=== PATIENT | male | born 1990 | race Caucasian/White ===

== ENCOUNTER 2018-08-03 08:18 | Outpatient (CLI) | payer OTHER ==
[2018-08-03 09:09] LABS: CHOL/HDL RATIO 4.5 (<5.0); CHOLESTEROL 168 mg/dL; HDL CHOLESTEROL 37 mg/dL
[2018-08-03 09:25] LABS: HB2 TOTAL 17.6 g/dL; HEMOGLOBIN A1C 0.58 g/dL; HEMOGLOBIN A1C % 5.2 % (4.6-6.2)
[2018-08-03 09:27] LABS: LDL CHOLESTEROL,DIRECT 83 mg/dL; LDLD/HDL RATIO 2.2 (<3.6)
== END 2018-08-03 08:19 | disposition home or self-care (01) ==
LOC: LAB 08:18
PROVIDERS: ATTEND Nurse Practitioner Family
DX: E78.5 Hyperlipidemia, unspecified (principal); Z13.1 Encounter for screening for diabetes mellitus
CPT/HCPCS: 36415; 80061; 83036; 83721

== ENCOUNTER 2018-08-10 08:14 | Outpatient (CLI) | payer OTHER ==
[2018-08-10 08:40] LABS: ALBUMIN 4.7 g/dL (3.2-5.5); ALBUMIN/GLOBULIN RATIO 1.5 (1.0-2.2); BILIRUBIN,TOTAL 0.6 mg/dL (0.2-1.0); CALCIUM 9.5 mg/dL (8.5-10.3); CREATININE 0.8 mg/dL (0.6-1.2); TOTAL PROTEIN 7.8 g/dL (6.7-8.2)
== END 2018-08-10 08:15 | disposition home or self-care (01) ==
LOC: LAB 08:14
PROVIDERS: ATTEND Nurse Practitioner Family
DX: E78.5 Hyperlipidemia, unspecified (principal)
CPT/HCPCS: 36415; 80053; 84443

== ENCOUNTER 2018-08-30 13:20 | Outpatient (CLI) | payer OTHER | END 2018-08-30 13:21 | disposition home or self-care (01) | LOC: SC 13:20 | PROVIDERS: ATTEND Internal Medicine Pulmonary Disease | DX: G47.10 Hypersomnia, unspecified (principal); R06.81 Apnea, not elsewhere classified; R41.89 Other symptoms and signs involving cognitive functions and awareness; R06.83 Snoring; G47.8 Other sleep disorders | CPT/HCPCS: 99203; 99212 ==

== ENCOUNTER 2018-09-21 19:26 | Outpatient (CLI) | payer OTHER | END 2018-09-21 19:27 | disposition home or self-care (01) | LOC: SC 19:26 | PROVIDERS: ATTEND Internal Medicine Pulmonary Disease | DX: G47.33 Obstructive sleep apnea (adult) (pediatric) (principal) | CPT/HCPCS: 95810 ==

== ENCOUNTER 2018-11-03 08:16 | Outpatient (CLI) | payer OTHER | END 2018-11-03 08:17 | disposition home or self-care (01) | LOC: SC 08:16 | PROVIDERS: ATTEND Nurse Practitioner Family | DX: G47.33 Obstructive sleep apnea (adult) (pediatric) (principal) | CPT/HCPCS: 99212; 99214 ==

== ENCOUNTER 2019-01-04 | Outpatient (CLI) | payer OTHER | END 2019-01-04 15:44 | disposition home or self-care (01) | DX: G47.33 Obstructive sleep apnea (adult) (pediatric) (principal) | CPT/HCPCS: 99212; 99214 ==

== ENCOUNTER 2019-02-15 07:57 | Outpatient (CLI) | payer OTHER ==
[2019-02-15 08:28] LABS: ALBUMIN 4.3 g/dL (3.2-5.5); ALBUMIN/GLOBULIN RATIO 1.4 (1.0-2.2); ALKALINE PHOSPHATASE 66 IU/L (42-121); ALT ALANINE AMINOTRANSFERASE 29 IU/L (10-60); AST ASPARTATE AMINOTRANSFERASE 22 IU/L (10-42); BILIRUBIN,TOTAL 0.4 mg/dL (0.2-1.0); BUN - BLOOD UREA NITROGEN 15 mg/dL (6-20); CALCIUM 9.2 mg/dL (8.5-10.3); CARBON DIOXIDE - CO2 24 mmol/L (21-32); CHLORIDE 104 mmol/L (101-111); CHOL/HDL RATIO 4.1 (<5.0); CHOLESTEROL 150 mg/dL; CREATININE 0.8 mg/dL (0.6-1.2); GFR - MDRD 116 (>89); GLUCOSE 120 mg/dL (70-100); HDL CHOLESTEROL 37 mg/dL; LDL CHOLESTEROL,CALCULATED 52 mg/dL; LDL/HDL RATIO 1.4 (<3.6); SODIUM 137 mmol/L (135-145); TOTAL PROTEIN 7.4 g/dL (6.7-8.2); VLDL CHOLESTEROL 61 mg/dL
== END 2019-02-15 07:58 | disposition home or self-care (01) ==
LOC: LAB 07:57
PROVIDERS: ATTEND Nurse Practitioner
DX: G47.33 Obstructive sleep apnea (adult) (pediatric) (principal); I10 Essential (primary) hypertension; E78.5 Hyperlipidemia, unspecified
CPT/HCPCS: 36415; 80053; 80061; 83721

== ENCOUNTER 2019-04-03 08:18 | Outpatient (CLI) | payer OTHER ==
--- NOTE | 2019-04-03 09:04 | SLEEP CARE CONSULTATION ---
Information from patient questionnaire entered by Zoila Dixon. I have reviewed and concur with the information entered by Zoila Dixon. This document represents the service I personally performed and the decisions made by me, Genie Coon, RN, MSN, [facility]. History of Present Illness Previous diagnosis: Moderate, Obstructive Sleep Apnea-Hypopnea Syndrome AHI: 16.9 Reason for CPAP/BiPAP follow up: three month (PRESSURE CHANGE) Equipment type: CPAP Equipment obtained from: [facility] Prior sleep studies: Yes Year and Where: 2019 [facility] additional information: Since last seen, his lisinopril has been discontinued as better blood control with CPAP. His sleep schedule may be interrupted due to new baby in household. CPAP Compliance Data - Data Reviewed with Patient Average duration of nightly device use: 7h 19m Compliance rate %: 98.9 Current pressure setting (cmH2O): 8-12 Humidity settin Heated hose settin Average residual AHI: 1.6 Average large leak: 0 Subjective Missed days of use due to: reports: other (hospital of of baby) Patient concerns: reports: nasal congestion (once only and adjusted humidity ). denies: aerophagia, mask discomfort, air blowing in eyes, mask leak noise, condensation in mask/hose, dry mouth, nose, throat, epistaxis Observed to snore while using device: No Current pressure setting perceived as: comfortable On therapy, patient: reports: sleeping better, awakening more refreshed, being more awake and alert during the day, more rested overall. denies: drowsiness while driving Initial [place] Sleepiness Scale score: 11 Current [place] Sleepiness Scale score: 5 Allergies and Home Medications Known drug allergies: Yes Home medication list reviewed: Yes Allergy and home medication list: Medication Name (generic/name brand) Strength & Dosage Atorvastatin 40 mg daily Review of Systems Review of systems same as previous: Yes Physical Exam Blood Pressure: 130/70 Cuff size: long Height: 6 ft 4.75 in Weight: 310 lb 3.2 oz Body Mass Index: 37.0 BMI Classification: Obesity Class 2 Impression and Plan 1. Obstructive Sleep Apnea-Hypopnea Syndrome, moderate, with good treatment compliance and good apnea control. On CPAP therapy, the patient has better sleep quality and is more rested overall. Now that patient is feeling better, he would like to start losing weight. He has a family of diabetes history and is aware he needs to lose weight to decrease risks. Currently his BMI is 37 , class 2 obesity. His goal is to get to 230 weight where he felt good in highschool. I stressed importance of getting rid of gut weight to reduce health risks. He is going to start by reducing portions and healthy content. I discussed how weight loss will reduce his apnea risk and pressure requirements. Symptoms to report for pressure change discussed. Questions in regard to replacement of supplies and rationale discussed. Copy of reference sheet given. Patient's apnea severity and rationale for treatment to reduce apnea, improve sleep quality and reduce cardiovascular and cerebrovascular events was reviewed. I also reviewed the benefit of consistent device use of CPAP for hypertension. His blood pressure medication has been discontinued since last seen. Since his apnea is more severe supine , then is unable to use CPAP he is to avoid supine with pillow positioning. * Continue CPAP pressure at 8-12 cmH2O * Notify me if snoring with mask or feeling that the pressure is too much or too little * Attempt to lose weight * Return for follow up in 6 months , or sooner if concerns arise I spent 100% of this 30 minute visit face to face with the patient with greater than 50% of this was spent time counseling the patient and coordination of care.
[2019-04-03 09:05] VITALS: BP 130/70
== END 2019-04-03 08:19 | disposition home or self-care (01) ==
LOC: SC 08:18
PROVIDERS: ATTEND Nurse Practitioner Family
DX: G47.33 Obstructive sleep apnea (adult) (pediatric) (principal); E66.9 Obesity, unspecified; Z68.37 Body mass index [BMI] 37.0-37.9, adult
CPT/HCPCS: 99212; 99214

== ENCOUNTER 2020-06-06 07:44 | Outpatient (CLI) | payer OTHER ==
--- NOTE | 2020-06-06 08:20 | SLEEP CARE CONSULTATION ---
Information from patient questionnaire entered by Ani Calzada. I have reviewed and concur with the information entered by Ani Calzada. This document represents the service I personally performed and the decisions made by , Pam Hendricks ARNP. History of Present Illness Service Date and Time: 06/06/2020 0744 Previous diagnosis: Moderate, Obstructive Sleep Apnea-Hypopnea Syndrome AHI: 16.9 (in 2019) Reason for follow up: annual (last seen 03/2019) Equipment type: CPAP Equipment obtained from: [employer] (getting supplies as needed, sometimes gets some online) Mask style: Nasal pillows Backup mask available: Yes (old mask) Last cushion change: 1 month Prior sleep studies: Yes Year and Where: 2019 - [facility] [place] Type of Sleep Study: Polysomnography HPI additional information: MICHAEL JUÁREZ was diagnosed to have moderate, AHI 16.9, obstructive sleep apnea- hypopnea syndrome and returned today for CPAP therapy annual follow-up. CPAP Compliance Data - Data Reviewed with Patient Average duration of nightly device use: 6 hr 48 min Compliance rate %: 93.3 (180 days) Current pressure setting (cmH2O): 8-12 Humidity settin Heated hose settin Average residual AHI: 1.6 Average large leak: 1 sec Subjective Missed days of use due to: reports: other (forgot) Patient concerns: reports: dry mouth, nose, throat (not every night, less than half; uses chinstrap to keep jaw shut), other (uses chin strap, drools a lot at night). denies: aerophagia, mask discomfort, air blowing in eyes, mask leak noise, condensation in mask/hose, nasal congestion, epistaxis Observed to snore while using device: No Current pressure setting perceived as: comfortable On therapy, patient: reports: sleeping better, awakening more refreshed, being more awake and alert during the day, more rested overall. denies: drowsiness while driving Initial [place] Sleepiness Scale score: 11 (in 2019) Current [place] Sleepiness Scale score: 3 Allergies and Home Medications Drug allergies reviewed: Yes (NKDA) Home medication list reviewed: Yes (no changes) Review of Systems Review of systems same as previous: Yes (no changes) Physical Exam Heart Rate: 85 O2 Saturation: 100 Height: 6 ft 4.75 in Weight: 309 lb Body Mass Index: 36.8 BMI Classification: Obese Impression and Plan 1. Obstructive Sleep Apnea-Hypopnea Syndrome, moderate, with good treatment compliance and good apnea control. On CPAP therapy, the patient has better sleep quality and is more rested overall. He often has a dry mouth but states he has an issue with lots of drooling at night and he wears a chin strap to keep his mouth closed. Oral dryness can be reduced by adjusting humidity setting higher or heated hose lower or by adjusting both settings. I reviewed instructions on how to change humidity and heated hose settings with rationale explaining why to change. Patient advised that chronic oral dryness can affect dental health and advised to follow up with dentist if it becomes chronic throughout the day. 2. Obesity, unspecified. Currently patients BMI is 36.8. Obesity increases the risk of apnea, CPAP pressure requirements and overall health risks especially cardiovascular and diabetes. Thus patient is advised to lose weight. Weight loss can be done with reducing portion size, reducing refined foods and balancing content with vegetables, fruit and whole grain foods. Patient's apnea severity and rationale for treatment to reduce apnea, improve sleep quality and reduce cardiovascular and cerebrovascular events was reviewed. I also reviewed the benefit of consistent device use of CPAP for hypertension. * Continue auto CPAP pressure at 8-12 cmH2O * Notify me if snoring with mask or feeling that the pressure is too much or too little * Attempt to lose weight * Call this office if any problems using CPAP * Return for follow up in 1 year , or sooner if concerns arise Counseling Topics: Spare mask, Weight loss health impact Visit Type: In Office Time Spent with Patient (minutes): 17 Provider Statement: I spent 100% of the Face to Face Visit with the patient with greater than 50% spent counseling the patient and coordination of care.
== END 2020-06-06 07:45 | disposition home or self-care (01) ==
LOC: SC 07:44
PROVIDERS: ATTEND Nurse Practitioner Family
DX: G47.33 Obstructive sleep apnea (adult) (pediatric) (principal); E66.9 Obesity, unspecified; Z68.36 Body mass index [BMI] 36.0-36.9, adult
CPT/HCPCS: 99212; 99213

== ENCOUNTER 2022-03-17 21:18 | Emergency (ER) | payer BC, OTHER ==
[2022-03-17 22:00] LABS: BASOPHILS % (AUTO) 0.3 %; EOSINOPHILS % (AUTO) 0.1 %; HCT - HEMATOCRIT 41.6 % (42.0-52.0); HGB - HEMOGLOBIN 14.3 g/dL (14.0-18.0); LYMPHOCYTES # (AUTO) 2.4 10^3/uL (1.5-3.5); LYMPHOCYTES % (AUTO) 17.4 %; MEAN CORPUSCULAR HEMOGLOBIN 28.4 pg (27.0-31.0); MEAN CORPUSCULAR HGB CONC 34.4 g/dL (32.0-36.0); MEAN CORPUSCULAR VOLUME 82.5 fL (80.0-94.0); MEAN PLATELET VOLUME 9.3 fL (7.4-11.4); MONOCYTES # (AUTO) 0.8 10^3/uL (0.0-1.0); MONOCYTES % (AUTO) 6.1 %; NEUTROPHILS # (AUTO) 10.4 10^3/uL (1.5-6.6); NEUTROPHILS % (AUTO) 75.7 %; PLT - PLATELET COUNT 275 10^3/uL (130-450); RED BLOOD COUNT 5.04 10^6/uL (4.70-6.10); RED CELL DISTRIBUTION WIDTH 12.3 % (12.0-15.0); WHITE BLOOD COUNT 13.8 x10^3/uL (4.8-10.8)
[2022-03-17 22:05] LABS: GLUCOSE, URINE (UA) NEGATIVE (NEGATIVE); KETONES,URINE (UA) 15 mg/dL (NEGATIVE); LEUKOCYTE ESTERASE, URINE NEGATIVE (NEGATIVE); NITRITE,URINE POSITIVE (NEGATIVE); OCCULT BLOOD,URINE LARGE (NEGATIVE); PROTEIN,URINE >=300 mg/dL (NEGATIVE); UROBILINOGEN,URINE 1 (NORMAL) E.U./dL (NORMAL)
[2022-03-17 22:10] LABS: BILIRUBIN,URINE SMALL (NEGATIVE); ICTOTEST,URINE POSITIVE
[2022-03-17 22:11] LABS: BACTERIA,URINE Few /HPF (None Seen); CLARITY,URINE CLOUDY (CLEAR); RBC,URINE TNTC /HPF (0-5); SQUAMOUS EPITHELIAL CELL,UR FEW Squamous (<= Few); WBC,URINE 0-3 /HPF (0-3)
[2022-03-17 22:12] LABS: ALBUMIN 4.9 g/dL (3.2-5.5); ALBUMIN/GLOBULIN RATIO 1.6 (1.0-2.2); BILIRUBIN,TOTAL 0.6 mg/dL (0.2-1.0); CALCIUM 9.5 mg/dL (8.5-10.3); POTASSIUM 3.5 mmol/L (3.5-5.0)
[2022-03-17] MEDS ORDERED: SODIUM CHLORIDE 0.9% 1,000 ML IV STA (22:20)
--- NOTE | 2022-03-17 23:33 | CT Report ---
PROCEDURE: Abdomen/Pelvis W INDICATIONS: painless hematuria CONTRAST: IV CONTRAST: Optiray 320 ml: 100 PO CONTRAST: *NO PO CONTRAST TECHNIQUE: After the administration of intravenous contrast, 5 mm thick sections acquired from the diaphragms to the symphysis. 5 mm thick coronal and sagittal reformats were acquired. For radiation dose reducti on, the following was used: automated exposure control, adjustment of mA and/or kV according to lucila ent size. COMPARISON: None. FINDINGS: Image quality: Excellent. Lung bases: Unremarkable. Heart: Heart is normal in size. ABDOMEN: Liver: No mass lesion. Gallbladder: Within normal limits without calcified gallstones. Biliary ducts: No biliary ductal dilatation. Pancreas: Unremarkable. Spleen: Normal in size. Adrenal Glands: No adrenal nodules. Kidneys and Ureters: No hydronephrosis.There is a small nonobstructing stone in the left kidney bonifacio suring up to 0.2 cm. Stomach and Bowel: Stomach, small bowel loops, and colon are normal in caliber and wall thickness. T he appendix is normal in appearance. Peritoneum: No abnormal intraperitoneal fluid. No free air. Ventral Wall: No hernia. Abdominal Nodes: No retroperitoneal or mesenteric adenopathy by size criteria. Vessels: Aorta and inferior vena cava are normal in size. PELVIS: Pelvic Organs: Unremarkable. Bladder:The bladder demonstrates normal wall thickness. No discrete mass identified. No calcified bl adder stones. Pelvic Nodes: No enlarged lymph nodes. Miscellaneous: No inguinal hernias are seen. Bones: Visualized osseous structures demonstrate no suspicious focal lesions. IMPRESSION: 1. Small nonobstructing left renal stone. No evidence of obstructive uropathy. 2. No discrete bladder mass or calcified bladder stones identified. Reviewed by: Steffen Van MD on 03/17/2022 11:39 PM PDT Approved by: Steffen Van MD on 03/17/2022 11:39 PM PDT Station ID: [id number]
--- NOTE | 2022-03-17 23:57 | ED Physician Documentation ---
PD HPI MALE - Stated complaint Stated Complaint: BLOOD IN URINE - Chief complaint Chief Complaint: Abd Pain - History obtained from History obtained from: Patient - Additional information Additional information: Patient is a 31-year-old male with no significant past medical history presenting for evaluation of blood in his urine that started this evening at 7 PM. He denies associated dysuria or pain. No fever, abdominal pain, flank pain, concern for STD. Patient reports being outside working a lot today and felt that his urine appeared darker. However this evening he saw that there was blood in the urine.Denies muscle or body aches. He does not take a blood thinner. Review of Systems Constitutional: denies: Fever Nose: denies: Congestion Throat: denies: Sore throat Cardiac: denies: Chest pain / pressure Respiratory: denies: Dyspnea, Cough GI: denies: Abdominal Pain, Vomiting : reports: Hematuria. denies: Dysuria Musculoskeletal: denies: Back pain Neurologic: denies: Generalized weakness, Headache PD PAST MEDICAL HISTORY - Present Medications Home Medications: Ambulatory Orders Medication Instructions Recorded Confirmed No Known Home Medications 03/17/22 03/17/22 - Allergies Allergies/Adverse Reactions: Allergies Allergy/AdvReac Type Severity Reaction Status Date / Time No Known Drug Allergies Allergy Verified 03/17/22 21:32 PD ED PE NORMAL - General General: Alert and oriented X 3, No acute distress, Well developed/nourished - HEENT HEENT: Atraumatic, Moist mucous membranes - Neck Neck: Supple, no meningeal sign - Cardiac Cardiac: RRR, No murmur, Strong equal pulses - Respiratory Respiratory: No respiratory distress, Clear bilaterally - Abdomen Abdomen: Normal bowel sounds, Soft, Non tender, Non distended - Derm Derm: Warm and dry - Extremities Extremities: No edema - Neuro Neuro: Normal speech Results - Vitals Vitals: Vital Signs - 24 hr 03/17/22 03/18/22 21:28 00:04 Temperature 36.7 C 36.7 C Heart Rate 115 H 88 Respiratory 16 16 Rate Blood Pressure 149/84 H 137/86 H O2 Saturation 100 99 Oxygen O2 Source Room air - Labs Labs: Laboratory Tests 03/17/22 03/17/22 03/17/22 21:50 21:54 21:54 WBC 13.8 H RBC 5.04 Hgb 14.3 Hct 41.6 L MCV 82.5 MCH 28.4 MCHC 34.4 RDW 12.3 Plt Count 275 MPV 9.3 Neut # (Auto) 10.4 H Lymph # (Auto) 2.4 [place] # (Auto) 0.8 Eos # (Auto) 0.0 Baso # (Auto) 0.0 Absolute Nucleated RBC 0.00 Nucleated RBC % 0.0 Sodium 138 Potassium 3.5 Chloride 102 Carbon Dioxide 24 Anion Gap 12.0 BUN 26 H Creatinine 1.0 Estimated GFR (MDRD) 88 L Glucose 117 H Calcium 9.5 Total Bilirubin 0.6 AST 28 ALT 29 Alkaline Phosphatase 55 Total Creatine Kinase Total Protein 8.0 Albumin 4.9 Globulin 3.1 Albumin/Globulin Ratio 1.6 Urine Color BROWN Urine Clarity CLOUDY Urine pH 5.0 Ur Specific [place] >=1.030 H Urine Protein >=300 H Urine Glucose (UA) NEGATIVE Urine Ketones 15 H Urine Occult Blood LARGE H Urine Nitrite POSITIVE H Urine Bilirubin SMALL H Urine Urobilinogen 1 (NORMAL) Ur Leukocyte Esterase NEGATIVE Urine RBC TNTC H Urine WBC 0-3 Ur Squamous Epith Cells FEW Squamous Urine Bacteria Few Ur Microscopic Review INDICATED Urine Culture Comments INDICATED 03/17/22 21:54 WBC RBC Hgb Hct MCV MCH MCHC RDW Plt Count MPV Neut # (Auto) Lymph # (Auto) [place] # (Auto) Eos # (Auto) Baso # (Auto) Absolute Nucleated RBC Nucleated RBC % Sodium Potassium Chloride Carbon Dioxide Anion Gap BUN Creatinine Estimated GFR (MDRD) Glucose Calcium Total Bilirubin AST ALT Alkaline Phosphatase Total Creatine Kinase 386 H Total Protein Albumin Globulin Albumin/Globulin Ratio Urine Color Urine Clarity Urine pH Ur Specific [place] Urine Protein Urine Glucose (UA) Urine Ketones Urine Occult Blood Urine Nitrite Urine Bilirubin Urine Urobilinogen Ur Leukocyte Esterase Urine RBC Urine WBC Ur Squamous Epith Cells Urine Bacteria Ur Microscopic Review Urine Culture Comments PD MEDICAL DECISION MAKING - ED course Complexity details: reviewed results, re-evaluated patient, d/w patient, d/w family ED course: Patient presenting for evaluation of hematuria. Slightly tachycardic upon arrival but otherwise vital signs are reassuring and his abdominal exam is benign. Labs reviewed including CK as patient had reported being outside working today and labs are overall reassuring. Urine is positive for blood. Also has nitrites but patient denies UTI symptoms.CT scan was obtained with small left kidney stone but no ureter stone or mass or tumor. I did review these findings with the patient and discussed that the etiology of his hematuria is still not clear. I advise close follow-up with his primary care doctor and likely referral to urology for further testing. Patient is counseled on concerning symptoms to return for. Departure - Departure Disposition: 01 Home, Self Care Clinical Impression: Hematuria Condition: Stable Instructions: ED Hematuria Follow-Up: RINA BRUNSON MD [Physician No Access] - Comments: You were evaluated for blood in your urine. Your labs were overall reassuring. Your urine Will also be sent for a urine culture and we will notify you of any abnormal results.A CT scan was done which showed a small stone in the left kidney (2mm) but this should not be Causing you symptoms at this time as stones usually cause symptoms once they are coming out of the kidney. I would recommend having close follow-up with your primary care doctor as you may need a referral to a urologist for further testing to determine the cause of the blood in your urine. If you have any worsening symptoms please return to the emergency department. I would recommend having close follow-up with your primary care doctor as you may need a referral to a urologist for further testing to determine the cause of the blood in your urine. If you have any worsening symptoms please return to the emergency department. Discharge Date/Time: 03/18/22 00:04
[2022-03-18 00:04] VITALS: BP 137/86
== END 2022-03-18 00:04 | disposition home or self-care (01) ==
LOC: ED 21:18
DX: R31.0 Gross hematuria (principal); N20.0 Calculus of kidney
CPT/HCPCS: 36415; 74177; 80053; 81001; 82550; 85025; 87086; 96360; 99282; 99284; Q9967; 81003